=== PATIENT | female | born 2000 | race Caucasian/White ===

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

== ENCOUNTER 2025-06-17 17:55 | Emergency (ER) | payer OTHER ==
[~2025-06-17] VITALS: Ht 165.1 cm; Wt 79.0 kg
[2025-06-17 18:55] VITALS: TEMP 97.9
[2025-06-17 20:05] VITALS: BP 122/76; PULSE 85; RESP 18; O2SAT 99
== END 2025-06-17 20:42 | disposition home or self-care (01) ==
LOC: EMS 17:55
DX: M79.632 Pain in left forearm (principal); M79.604 Pain in right leg; M25.521 Pain in right elbow; F12.90 Cannabis use, unspecified, uncomplicated; V87.9XXA Person injured in other specified (collision)(noncollision) transport accidents involving nonmotor vehicle (traffic), initial encounter; Y93.89 Activity, other specified; Y92.410 Unspecified street and highway as the place of occurrence of the external cause; Y99.8 Other external cause status
CPT/HCPCS: 84703; 99284; 73080-TC; 73090-TC; 73562-TC; 73590-TC; Z7502